=== PATIENT | male | born 2005 | race Caucasian/White ===

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

== ENCOUNTER 2023-04-30 20:58 | Emergency (ER) | payer MEDICAID ==
[~2023-04-30] VITALS: Ht 172.7 cm; Wt 65.0 kg
[2023-04-30 21:14] VITALS: BP 139/87; PULSE 95; RESP 16; TEMP 100.2; O2SAT 98
== END 2023-04-30 23:20 | disposition left against medical advice (07) ==
LOC: ER 20:58
DX: L02.612 Cutaneous abscess of left foot (principal); M79.672 Pain in left foot; Z53.21 Procedure and treatment not carried out due to patient leaving prior to being seen by health care provider
CPT/HCPCS: 99281